=== PATIENT | female | born 1970 | race Caucasian/White ===

== ENCOUNTER → 2024-02-01 09:52 | Outpatient (REF) | payer OTHER, SELFPAY | LOC: RAD 09:52 | PROVIDERS: ATTENDING PHYSICIAN Family Medicine | DX: R05.1 Acute cough (principal) | CPT/HCPCS: 71046 ==

== ENCOUNTER → 2024-10-17 12:55 | Outpatient (REF) | payer OTHER, SELFPAY | LOC: HWRAD 12:55 | PROVIDERS: ATTENDING PHYSICIAN Obstetrics & Gynecology; FAMILY PHYSICIAN Family Medicine | DX: N83.292 Other ovarian cyst, left side (principal) | CPT/HCPCS: 76830; 76856 ==

== ENCOUNTER 2024-11-13 08:10 | Emergency (ER) | payer OTHER, SELFPAY ==
[2024-11-13 08:24] VITALS: BP 138/86
[2024-11-13 09:02] LABS: % Basophils 1.2 % (0-2); % Eosinophils 3.9 % (0-6); % Immature Granulocytes 0.2 % (0-0.5); % Lymphocytes 26.5 % (20.5-51.1); % Monocytes 6.7 % (1.7-9.3); % Neutrophils 61.5 % (42.2-75.2); Absolute Basophils 0.1 10^3/uL (0-0.2); Absolute Eosinophils 0.2 10^3/uL (0-0.7); Absolute Lymphocytes 1.4 10^3/uL (1.2-3.4); Absolute Monocytes 0.3 10^3/uL (0.1-0.6); Absolute Neutrophils 3.1 10^3/uL (1.4-6.5); Hematocrit 43.9 % (37.0-47.0); Hemoglobin 14.4 g/dL (12.0-16.0); Mean Corp Hgb Conc. 32.8 g/dL (33.0-37.0); Mean Corpuscular Hgb 28.7 pg (27.0-31.0); Mean Corpuscular Volume 87.5 fL (81.0-99.0); Mean Platelet Volume 12.8 fL (7.4-10.4); Nucleated Red Blood Cells % 0 %; Platelet Count 175 10^3/uL (130-400); Red Blood Cell Count 5.02 10^6/uL (4.20-5.40); White Blood Cell Count 5.1 10^3/uL (4.8-10.8)
[2024-11-13 09:07] LABS: ALT (SGPT) 17 U/L (0-35); AST (SGOT) 21 U/L (14-36); Albumin 4.9 g/dl (3.5-5.0); Alkaline Phosphatase 66 U/L (38-126); Blood Urea Nitrogen 18 mg/dl (7-17); Calcium 9.3 mg/dl (8.4-10.2); Carbon Dioxide 28 mmol/L (22-30); Chloride 103 mmol/L (98-107); Glucose 102 mg/dl (70-99); Potassium 4.8 mmol/L (3.5-5.1); Sodium 140 mmol/L (135-145); Total Bilirubin 0.6 mg/dl (0.2-1.3); eGFR > 60.00
--- NOTE | 2024-11-13 10:50 | ED.GENMED ---
History of Present Illness
General
Chief Complaint: Headache
Time Seen by Provider: 11/13/24 10:08
History of Present Illness
History of Present Illness:
54-year-old female presents the emergency department for evaluation of a new onset headache. States she woke up at approximately 7 AM today and suddenly developed a sensation of 'pain is improving open in the back of my head' followed by headache.
The headache was described as not severe, currently rated 2 out of 10. No photophobia, nausea vomiting or extremity paresthesias. Did not take any medication prior to arrival. No history of primary headaches or migraines.
Review of Systems
Review of Systems
Allergies reviewed?: Yes
All Other Systems: ROS reviewed and negative except as documented in HPI and ROS
Phy Exam
Physical Exam
Physical Exam:
GEN: Well appearing, NAD, WDWN
HEENT: Oral mucosa moist, no scleral icterus, no nasal congestion
Cardiac: Regular rate
Lung: No respiratory distress, no tachypnea
MSK: No gross deformity or injuries
Skin: Good color, no pallor or jaundice, no rashes
Neuro: AO x3; CN II-XII grossly intact. BUE strength 5/5 in all jerry, sensation intact and symmetric. BLE strength 5/5 in all jerry, sensation intact and symmetric
Psych: Calm, cooperative
Course
Orders/Labs/Results
Orders:
Orders
11/13/24 08:36
Complete Blood Count/With Diff Urgent
Comprehensive Metabolic Panel Urgent
11/13/24 10:10
CT Head W/o Iv Contrast Urgent
Comment:
Reason For Exam: headache acute
11/13/24 10:50
Acetaminophen [Tylenol] 1,000 mg PO NOW STA
Ibuprofen [Motrin] 600 mg PO NOW STA
Abnormal Lab Results
11/13/24
08:36
MCHC 32.8 L g/dL
(33.0-37.0)
MPV 12.8 H fL
(7.4-10.4)
BUN 18 H mg/dl
(7-17)
Glucose 102 H mg/dl
(70-99)
11/13/24 08:36
11/13/24 08:36
Vital Signs
Initial and Last Documented VS:
Initial Vital Signs
Temp Pulse Resp BP Pulse Ox
98.6 F 77 18 138/86 99
11/13/24 08:24 11/13/24 08:24 11/13/24 08:24 11/13/24 08:24 11/13/24 08:24
Last Documented Vital Signs
Temp Pulse Resp BP Pulse Ox
98.6 F 77 18 138/86 99
11/13/24 08:24 11/13/24 08:24 11/13/24 08:24 11/13/24 08:24 11/13/24 08:24
MDM/Problems Addressed
MDM/Problems Addressed:
CT of the head is unremarkable, imaging was obtained within 6 hours of headache onset which is highly definitive to rule out subarachnoid hemorrhage. She is clinically stable with no focal neurologic symptoms and only minimal headache is reported
at this time. She is stable for discharge home and outpatient management
*Critical Care Note
Total Time (30-74mins, 75-104mins- exclusive of procedures): Not Applicable
ED Attending Note
-
Portions of this chart may have been created with voice recognition software.� Occasional wrong word or��sound alike� substitutions may have occurred due to the inherent limitations of voice recognition software.
Discharge Plan
Departure
Patient Disposition: Home (Routine Discharge)
Date of Disposition: 11/13/24
Time of Disposition: 11:10
Patient with high blood pressure during this ER visit?: No
Discharge Problem:
Headache
Instructions: Headache, Adult (DC)
Referrals:
Blake Lambert MD [Family Provider] -
Interventions
Interventions:
*Risk Screen - Suicide Last Done: 11/13/24 08:29
*General Assessment Last Done: 11/13/24 08:29
*Neglect/Abuse Screening Last Done: 11/13/24 08:29
*Nursing Disposition Last Done: 11/13/24 11:20
ED- Neurological Assessment Last Done: 11/13/24 10:52
Discharge Date and Time
Discharge Date/Time: 11/13/24 11:20
Print Language: KOSOVAN
== END 2024-11-13 11:20 | disposition home or self-care (01) ==
LOC: EMR 08:10
PROVIDERS: Emergency Medicine; EMERGENCY PHYSICIAN Student in an Organized Health Care Education/Training Program; FAMILY PHYSICIAN Family Medicine
DX: R51.9 Headache, unspecified (principal)
CPT/HCPCS: 99284; 70450; 80053; 85025